=== PATIENT | female | born 1995 | race Caucasian/White ===

== ENCOUNTER 2024-04-21 18:10 | Emergency (ER) | payer OTHER, SELFPAY ==
[2024-04-21 18:24] VITALS: BP 145/97; PULSE 88; TEMP 36.7; O2SAT 98
--- NOTE | 2024-04-21 18:42 | PC.NURSE ---
pt ashley came back and hit her in her R ear a few days ago and realized the back of her earring was stuck in ear lobe from back tried getting it herself but was unable to.
--- NOTE | 2024-04-21 18:43 | ED.SKABFB1 ---
Documented by User: [email or web address] Fuller 04/21/24 18:50 HPI - Skin/Abscess/Foreign Bdy General Chief complaint: Skin/Abscess/Foreign Body Stated complaint: EARRING STUCK IN EAR Time Seen by Provider: 04/21/24 18:37 Source: patient Mode of arrival: walk-in History of Present Illness HPI narrative: Patient presents with concerns of earring stuck in her ear. Immunizations up-to-date. Patient states she was sweeping earlier in the week and the vacuum struck her in the right ear where she was wearing an earring. There was no bleeding and she did not think much about this episode. She then attempted to remove the stopper from the back of her ear and could not feel it and realized it got pulled in under her skin. Patient is unable to pull the earring out to the front. Pain only present with tugging and she has been pulling at her earring for some time and is unable to free it from her ear with suspicion that the back has been pulled into the soft tissue of her skin. Patient denies any change in her hearing status and there is been no fever or illness or redness. Related Data Allergies Allergy/AdvReac Type Severity Reaction Status Date / Time No Known Drug Allergies Allergy Verified 04/21/24 18:30 Review of Systems ROS Constitutional Denies: fever or chills Eyes Denies: change in vision Ears, nose, mouth, and throat Reports: other (+ FB right earlobe); Denies: throat pain, neck pain, ear discharge or change in hearing Cardiovascular Denies: chest pain Respiratory Denies: shortness of breath Gastrointestinal Denies: abdominal pain or nausea Genitourinary Denies: painful urination Musculoskeletal Denies: back pain Integumentary/Breast Denies: rash, itching or redness Neurological Denies: headache Hematologic/Lymphatic Denies: easy bruising Allergic/Immunologic Denies: hives PFSH PFSH Social History Little interest or pleasure in doing things: not at all Feeling down, depressed, or hopeless: not at all Exam Constitutional Vital Signs, click to edit/add: Last Vital Signs Temp 98.0 F 04/21/24 18:24 Pulse 88 04/21/24 18:24 Resp 18 04/21/24 18:24 BP 145/97 H 04/21/24 18:24 Pulse Ox 98 04/21/24 18:24 O2 Del Method Room Air 04/21/24 18:24 Course Vital Signs Vital signs: Vital Signs Temperature 98.0 F 04/21/24 18:24 Pulse Rate 88 04/21/24 18:24 Respiratory Rate 18 04/21/24 18:24 Blood Pressure 145/97 H 04/21/24 18:24 Pulse Oximetry 98 04/21/24 18:24 Oxygen Delivery Method Room Air 04/21/24 18:24 Temperature 98.0 F 04/21/24 18:24 Pulse Rate 88 04/21/24 18:24 Respiratory Rate 18 04/21/24 18:24 Blood Pressure 145/97 H 04/21/24 18:24 Pulse Oximetry 98 04/21/24 18:24 Oxygen Delivery Method Room Air 04/21/24 18:24 MDM - Skin/Abscess/Foreign Bdy MDM Narrative Medical decision making narrative: Patient presents with a foreign body in the right earlobe presumed to be the back of her earring which got pulled through the hole. Verbally consenting to attempt at removal. The earring does not easily pull forward and does appear attached with the backing in place. Procedure, patient gave verbal permission for removal. The earring was pushed backwards into the ear with prepping of the opening with alcohol swabs a sterile alligator forcep was inserted along the shaft of the earring until the back of the earring could be grasped and pulled back into normal position. There was no bleeding. The patient was then able to grab the earring back and remove it herself without difficulty. No bleeding and patient neurovascular intact status post foreign body extraction from her right earlobe. Patient does not require x-ray as the earring was removed in its entirety and the backing was plastic in nature. It was visualized before being discarded by the patient in the trash. Patient will need to use gentle ear care as she has done for her ear piercings in the past watered-down hydrogen peroxide mix recommended. If any symptoms worsen she may follow-up with her PCP or return to the ER for oral antibiotic but with foreign body removed I do not feel she needs any antibiotic at this time. Patient tolerated this procedure well and will be discharged home The patient is to followup with primary care physician in next 2-3 days or to return to the emergency department should any of the signs or symptoms worsen or new symptoms develop. Patient had questions answered. The patient agrees with the following Diagnosis and Treatment plan and the patient will be discharged home. Discharge Plan Discharge Chief Complaint: Skin/Abscess/Foreign Body Clinical Impression: Foreign body in skin Patient Disposition: Home, Self-Care Time of Disposition Decision: 18:43 Condition: Good Mode of Transportation: Private Vehicle Print Language: Georgian Instructions: Soft Tissue Foreign Body (ED) Additional Instructions: Recommend Daily ear ring care solution. Referrals: Odilon Whitney MD [Primary Care Provider] - 1 week Discharge Date/Time: 04/21/24 18:46 Documented by User: Jese Mckeon MD 04/21/24 19:40 HPI - Skin/Abscess/Foreign Bdy General Chief complaint: Skin/Abscess/Foreign Body Stated complaint: EARRING STUCK IN EAR Time Seen by Provider: 04/21/24 18:37 Related Data Allergies Allergy/AdvReac Type Severity Reaction Status Date / Time No Known Drug Allergies Allergy Verified 04/21/24 18:30 PFSH PFSH Social History Little interest or pleasure in doing things: not at all Feeling down, depressed, or hopeless: not at all Exam Constitutional Vital Signs, click to edit/add: Last Vital Signs Temp 98.0 F 04/21/24 18:24 Pulse 88 04/21/24 18:24 Resp 18 04/21/24 18:24 BP 145/97 H 04/21/24 18:24 Pulse Ox 98 04/21/24 18:24 O2 Del Method Room Air 04/21/24 18:24 Course Vital Signs Vital signs: Vital Signs Temperature 98.0 F 04/21/24 18:24 Pulse Rate 88 04/21/24 18:24 Respiratory Rate 18 04/21/24 18:24 Blood Pressure 145/97 H 04/21/24 18:24 Pulse Oximetry 98 04/21/24 18:24 Oxygen Delivery Method Room Air 04/21/24 18:24 Temperature 98.0 F 04/21/24 18:24 Pulse Rate 88 04/21/24 18:24 Respiratory Rate 18 04/21/24 18:24 Blood Pressure 145/97 H 04/21/24 18:24 Pulse Oximetry 98 04/21/24 18:24 Oxygen Delivery Method Room Air 04/21/24 18:24 MDM - Skin/Abscess/Foreign Bdy MDM Narrative Medical decision making narrative: Patient presents with a foreign body in the right earlobe presumed to be the back of her earring which got pulled through the hole. Verbally consenting to attempt at removal. The earring does not easily pull forward and does appear attached with the backing in place. Procedure, patient gave verbal permission for removal. The earring was pushed backwards into the ear with prepping of the opening with alcohol swabs a sterile alligator forcep was inserted along the shaft of the earring until the back of the earring could be grasped and pulled back into normal position. There was no bleeding. The patient was then able to grab the earring back and remove it herself without difficulty. No bleeding and patient neurovascular intact status post foreign body extraction from her right earlobe. Patient does not require x-ray as the earring was removed in its entirety and the backing was plastic in nature. It was visualized before being discarded by the patient in the trash. Patient will need to use gentle ear care as she has done for her ear piercings in the past watered-down hydrogen peroxide mix recommended. If any symptoms worsen she may follow-up with her PCP or return to the ER for oral antibiotic but with foreign body removed I do not feel she needs any antibiotic at this time. Patient tolerated this procedure well and will be discharged home The patient is to followup with primary care physician in next 2-3 days or to return to the emergency department should any of the signs or symptoms worsen or new symptoms develop. Patient had questions answered. The patient agrees with the following Diagnosis and Treatment plan and the patient will be discharged home. I, Dr Mckeon, have reviewed the above progress note and course of action in the ER; agree with the above. I have gone over history and physical, and discussed disposition and treatment plan with the patient. Discharge Plan Discharge Chief Complaint: Skin/Abscess/Foreign Body Clinical Impression: Foreign body in skin Patient Disposition: Home, Self-Care Time of Disposition Decision: 18:43 Condition: Good Mode of Transportation: Private Vehicle Print Language: Georgian Instructions: Soft Tissue Foreign Body (ED) Additional Instructions: Recommend Daily ear ring care solution. Referrals: Odilon Whitney MD [Primary Care Provider] - 1 week Discharge Date/Time: 04/21/24 18:46
== END 2024-04-21 18:46 | disposition home or self-care (01) ==
PROVIDERS: Emergency Provider Emergency Medicine; PCP Family Medicine
DX: S00.451A Superficial foreign body of right ear, initial encounter (principal); X58.XXXA Exposure to other specified factors, initial encounter
CPT/HCPCS: 99281